=== PATIENT | male | born 1980 | race Caucasian/White ===

== ENCOUNTER → 2017-03-17 | Outpatient (CLI) | payer BC ==
[~2017-03-17] MED LIST: CITA10TA4 PO
--- NOTE | 2017-03-17 14:13 | CARD ---
APPROVED REPORT EXAM: Two-dimensional and M-mode echocardiogram with Doppler and color Doppler. Other Information Quality : Good Rhythm : NSR INDICATION Palpitations 2D DIMENSIONS RVDd3.5 (2.9-3.5cm)Left Atrium(2D)2.7 (1.6-4.0cm) IVSd1.0 (0.7-1.1cm)Aortic Root(2D)3.1 (2.0-3.7cm) LVDd4.8 (3.9-5.9cm)LVOT Diameter2.4 (1.8-2.4cm) PWd1.0 (0.7-1.1cm)LVDs3.4 (2.5-4.0cm) FS (%) 28.1 %SV57.2 ml LVEF(%)54.2 (>50%) Aortic Valve AoV Peak Brandon.106.8cm/sAoV VTI22.9cm AO Peak GR.4.6mmHgLVOT Peak Brandon.87.5cm/s LVOT VTI 19.35cmAO Mean GR.3mmHg BRIGIDA (VMAX)3.44ih0DIF (VTI)3.81cm2 Mitral Valve MV E Tgkwunhx42.9cm/sMV E Peak Gr.3mmHg MV DECEL [id number] A Imsnmdry87.6cm/s MV E Mean Gr.1mmHgE/A Ratio1.3 MV A [id number] Pulmonary Valve PV Peak Cfdvsxum442.8cm/sPV Peak Grad.6mmHg Pulmonary Vein S1 Vedozqug47.2cm/sD2 Vryjnpcc70.3cm/s LEFT VENTRICLE The left ventricle is normal size. There is normal left ventricular wall thickness. The left ventricu lar systolic function is normal and the ejection fraction is within normal range. The Ejection Fracti on is 55-60%. There is normal LV segmental wall motion. The left ventricular diastolic function and f illing is normal for age. RIGHT VENTRICLE The right ventricle is normal size. There is normal right ventricular wall thickness. The right ventr icular systolic function is normal. ATRIA The left atrium size is normal. The right atrium size is normal. The interatrial septum is intact wit h no evidence for an atrial septal defect or patent foramen ovale as noted on 2-D or Doppler imaging. AORTIC VALVE The aortic valve is normal in structure and function. The aortic valve is trileaflet. Doppler and Col or Flow revealed no significant aortic regurgitation. There is no significant aortic valvular stenosi s. MITRAL VALVE The mitral valve is normal in structure and function. There is no evidence of mitral valve prolapse. There is no mitral valve stenosis. Doppler and Color Flow revealed no mitral valve regurgitation note d. TRICUSPID VALVE Doppler and Color Flow revealed mild tricuspid regurgitation. The pulmonary artery systolic pressure is estimated at 24 mmHg. There is no pulmonary hypertension. PULMONIC VALVE The pulmonary valve is normal in structure and function. Doppler and Color Flow revealed no pulmonic valvular regurgitation. There is no pulmonic valvular stenosis. GREAT VESSELS The aortic root is normal in size. The ascending aorta is normal in size. The IVC is normal in size a nd collapses >50% with inspiration. PERICARDIAL EFFUSION There is no evidence of significant pericardial effusion. Critical Notification Critical Value: No <Conclusion> The left ventricular systolic function is normal and the ejection fraction is within normal range. Th e Ejection Fraction is 55-60%. There is normal LV segmental wall motion.
== END | disposition home or self-care (01) ==
LOC: ECHO 13:04
PROVIDERS: ATTEND Internal Medicine Cardiovascular Disease
DX: R00.2 Palpitations (principal)
CPT/HCPCS: 93306

== ENCOUNTER → 2017-12-15 | Outpatient (CLI) | payer BC, OTHER ==
--- NOTE | 2017-12-15 14:00 | RAD ---
EXAM: Lumbar spine, 3 views. HISTORY: Fall. COMPARISON: None. FINDINGS: Frontal, lateral and coned sacral views of the lumbar spine are obtained. There are 6 nonrib-bearing lumbar vertebral segments. There is degenerative endplate remodeling with disc space narrowing and facet arthropathy at L6-S1. No fracture is seen. IMPRESSION: 1. No acute osseous finding. 2. Degenerative change at the lumbosacral junction. 3. 6 nonrib-bearing lumbar vertebral segments, a normal variant. Electronically signed by: Liv Hamilton MD (12/15/2017 1:56 PM) [place] [id number]
== END | disposition home or self-care (01) ==
LOC: DXRAD 12:24
PROVIDERS: ATTEND Family Medicine
DX: M48.07 Spinal stenosis, lumbosacral region (principal); M12.88 Other specific arthropathies, not elsewhere classified, other specified site
CPT/HCPCS: 72100

== ENCOUNTER → 2018-12-17 | Outpatient (CLI) | payer BC ==
--- NOTE | 2018-12-17 16:40 | RAD ---
Bilateral hands, 6 views, 12/17/2018: HISTORY: Hand pain No recent fracture or dislocation is identified. There is only minimal spurring at scattered interphalangeal joints. No bone erosions are seen. A small calcific density in the soft tissues along the ulnar aspect of the distal right fifth metacarpal is probably due to old trauma. IMPRESSION: No acute hand abnormality is detected. Electronically signed by: Rocky Hamm MD (12/17/2018 4:37 PM) [facility]
== END | disposition home or self-care (01) ==
LOC: DXRAD 15:32
PROVIDERS: ATTEND Internal Medicine Rheumatology
DX: M77.8 Other enthesopathies, not elsewhere classified (principal)
CPT/HCPCS: 73130

== ENCOUNTER → 2018-12-17 | Outpatient (CLI) | payer BC ==
--- NOTE | 2018-12-17 16:10 | RAD ---
Chest, 2 views, 12/17/2018: HISTORY: Shortness of breath The heart size is normal. No pulmonary infiltrate is seen. There is no evidence of pleural fluid. IMPRESSION: No significant cardiopulmonary abnormality is detected. Electronically signed by: Rocky Hamm MD (12/17/2018 4:07 PM) [facility]
== END | disposition home or self-care (01) ==
LOC: DXRAD 15:25
PROVIDERS: ATTEND Physician Assistant Medical
DX: R06.02 Shortness of breath (principal)
CPT/HCPCS: 71046

== ENCOUNTER 2019-02-12 13:57 | Emergency (ER) | payer BC ==
[2019-02-12 14:20] VITALS: BP 166/89
[2019-02-12 14:34] LABS: BASO # 0.1 x10^3/uL (0.0-0.2); BASO % 1 % (0-3); EOS # 0.3 x10^3/uL (0.0-0.7); EOS % 6 % (0-3); HEMATOCRIT 50.7 % (39.0-53.0); HEMOGLOBIN 17.4 g/dL (13.0-17.5); LYMPH # 1.7 x10^3/uL (1.0-4.8); LYMPH % 30 % (24-48); MEAN CORPUSCULAR HEMOGLOBIN 30 pg (25-35); MEAN CORPUSCULAR HGB CONC 34 g/dL (31-37); MEAN CORPUSCULAR VOLUME 87 fL (79-100); MONO # 0.4 x10^3/uL (0.0-1.1); MONO % 7 % (0-9); NEUT # 3.2 x10^3uL (1.8-7.7); NEUT % 56 % (31-73); PLATELET COUNT 275 x10^3/uL (140-400); RED BLOOD COUNT 5.85 x10^6/uL (4.30-5.70); RED CELL DISTRIBUTION WIDTH 13.3 % (11.5-14.5); WHITE BLOOD COUNT 5.7 x10^3/uL (4.0-11.0)
[2019-02-12 14:46] LABS: ALBUMIN 4.5 g/dL (3.4-5.0); ALBUMIN/GLOBULIN RATIO 1.2 (1.0-1.7); CALCIUM 9.5 mg/dL (8.5-10.1); GFR 84.5; MAGNESIUM 2.3 mg/dL (1.8-2.4); POTASSIUM 4.1 mmol/L (3.5-5.1); TOTAL BILIRUBIN 0.5 mg/dL (0.2-1.0); TOTAL PROTEIN 8.4 g/dL (6.4-8.2)
--- NOTE | 2019-02-12 15:10 | PHYS DOC ---
Past History Past Medical History: Other Past Surgical History: No Surgical History Smoking: Non-smoker Alcohol Use: Occasionally Drug Use: None Adult General Chief Complaint Chief Complaint: CHEST PAIN [facility] HPI Patient is a 38-year-old male who presents with complaint of chest pain that started last night. He describes it as an ache and at times like a tingling shock. Patient indicates that he is being treated for Lyme disease. He states that he had a history of Lyme disease several years ago and had been prescribed medication but did not complete the medication. He states that currently he is taking doxycycline. He denies any nausea, vomiting or diaphoresis. He rates pain as mild to moderate. He states that nothing seems to worsen or improve the pain.[] Review of Systems Review of Systems Constitutional: Denies fever or chills [] Respiratory: Denies cough or shortness of breath [] Cardiovascular: No additional information not addressed in HPI [] GI: Denies abdominal pain, nausea, vomiting or diarrhea [] Integument: Denies rash or skin lesions [] Neurologic: Denies headache, focal weakness or sensory changes [] All other systems were reviewed and found to be within normal limits, except as documented in this note. Allergies Allergies Allergies Coded Allergies Type Severity Reaction Last Updated Verified No Known Drug Allergies 02/09/14 No Physical Exam Physical Exam Constitutional: Well developed, well nourished, no acute distress, non-toxic appearance. [] HENT: Normocephalic, atraumatic, bilateral external ears normal, oropharynx moist, no oral exudates, nose normal. [] Eyes: PERRLA, EOMI, conjunctiva normal, no discharge. [] Neck: Normal range of motion, no tenderness, supple, no stridor. [] Cardiovascular:Heart rate regular rhythm, no murmur [] Lungs & Thorax: Bilateral breath sounds clear to auscultation [] Abdomen: Bowel sounds normal, soft, no tenderness, no masses, no pulsatile masses. [] Skin: Warm, dry, no erythema, no rash. [] Back: No tenderness, no CVA tenderness. [] Extremities: No tenderness, no cyanosis, no clubbing, ROM intact, no edema. [] Neurologic: Alert and oriented X 3, normal motor function, normal sensory function, no focal deficits noted. [] Psychologic: Affect normal, judgement normal, mood normal. [] Current Patient Data Vital Signs Vital Signs Date Time Temp Pulse Resp B/P (MAP) Pulse Ox O2 Delivery O2 Flow Rate FiO2 02/12/19 14:20 84 18 98 Room Air Lab Results Laboratory Tests Test 02/12/19 14:00 White Blood Count 5.7 x10^3/uL (4.0-11.0) Red Blood Count 5.85 x10^6/uL (4.30-5.70) H Hemoglobin 17.4 g/dL (13.0-17.5) Hematocrit 50.7 % (39.0-53.0) Mean Corpuscular Volume 87 fL (79-100) Mean Corpuscular Hemoglobin 30 pg (25-35) Mean Corpuscular Hemoglobin Concent 34 g/dL (31-37) Red Cell Distribution Width 13.3 % (11.5-14.5) Platelet Count 275 x10^3/uL (140-400) Neutrophils (%) (Auto) 56 % (31-73) Lymphocytes (%) (Auto) 30 % (24-48) Monocytes (%) (Auto) 7 % (0-9) Eosinophils (%) (Auto) 6 % (0-3) H Basophils (%) (Auto) 1 % (0-3) Neutrophils # (Auto) 3.2 x10^3uL (1.8-7.7) Lymphocytes # (Auto) 1.7 x10^3/uL (1.0-4.8) Monocytes # (Auto) 0.4 x10^3/uL (0.0-1.1) Eosinophils # (Auto) 0.3 x10^3/uL (0.0-0.7) Basophils # (Auto) 0.1 x10^3/uL (0.0-0.2) D-Dimer (Kelley) < 0.19 mg/L (0.00-0.50) Sodium Level 138 mmol/L (136-145) Potassium Level 4.1 mmol/L (3.5-5.1) Chloride Level 103 mmol/L (98-107) Carbon Dioxide Level 25 mmol/L (21-32) Anion Gap 10 (6-14) Blood Urea Nitrogen 15 mg/dL (8-26) Creatinine 1.0 mg/dL (0.7-1.3) Estimated GFR (Cockcroft-Gault) 84.5 BUN/Creatinine Ratio 15 (6-20) Glucose Level 88 mg/dL (70-99) Calcium Level 9.5 mg/dL (8.5-10.1) Magnesium Level 2.3 mg/dL (1.8-2.4) Total Bilirubin 0.5 mg/dL (0.2-1.0) Aspartate Amino Transferase (AST) 19 U/L (15-37) Alanine Aminotransferase (ALT) 61 U/L (16-63) Alkaline Phosphatase 90 U/L (46-116) Troponin I Quantitative < 0.017 ng/mL (0-0.055) HN-Ihk-K-Type Natriuretic Peptide 6 pg/mL (0-124) Total Protein 8.4 g/dL (6.4-8.2) H Albumin 4.5 g/dL (3.4-5.0) Albumin/Globulin Ratio 1.2 (1.0-1.7) EKG EKG EKG demonstrates sinus tachycardia with a rate of 102.[] Radiology/Procedures Radiology/Procedures [] Impressions: PROCEDURE: PORTABLE CHEST 1V PORTABLE CHEST 1V Clinical Indication: Chest pain, history of asthma. Comparison: Two-view chest December 17, 2018. Findings: The cardiomediastinal silhouette is normal. Lungs are clear. There is no pneumothorax. No pleural effusion is appreciated. No acute bone abnormality. IMPRESSION: No acute cardiopulmonary process. Electronically signed by: Montrell Durbin MD (02/12/2019 3:18 PM) [facility] [place] Course & Med Decision Making Course & Med Decision Making Pertinent Labs and Imaging studies reviewed. (See chart for details) [] Dragon Disclaimer Dragon Disclaimer This electronic medical record was generated, in whole or in part, using a voice recognition dictation system. Departure Departure: Impression: Primary Impression: Atypical chest pain Disposition: 01 HOME, SELF-CARE Condition: STABLE Referrals: ROXANE LI (PCP) Patient Instructions: Chest Pain (Nonspecific) CHRISTI HOU Jr. DO Feb 12, 2019 15:10
--- NOTE | 2019-02-12 15:21 | RAD ---
PORTABLE CHEST 1V Clinical Indication: Chest pain, history of asthma. Comparison: Two-view chest December 17, 2018. Findings: The cardiomediastinal silhouette is normal. Lungs are clear. There is no pneumothorax. No pleural effusion is appreciated. No acute bone abnormality. IMPRESSION: No acute cardiopulmonary process. Electronically signed by: Montrell Durbin MD (02/12/2019 3:18 PM) [facility]
--- NOTE | 2019-02-12 15:57 | EKG ---
[address] [address] Test Date: 2019-02-12 Test Time: 14:06:22 Pat Name: ИРИНА OLIVAS Department: Room: Gender: M [employer]: CARISSA : 1980 Requested By: CHRISTI HOU Order Number: [id number] Reading MD: Measurements Intervals [place] Rate: 102 P: 29 LA: 146 QRS: 71 QRSD: 80 T: 15 QT: 342 QTc: 450 Interpretive Statements SINUS TACHYCARDIA OTHERWISE NORMAL ECG RI6.01 No previous ECG available for comparison
== END 2019-02-12 17:00 | disposition home or self-care (01) ==
LOC: ER 13:57
DX: R07.89 Other chest pain (principal); J45.909 Unspecified asthma, uncomplicated
CPT/HCPCS: 36415; 71045; 80053; 83735; 83880; 84443; 84484; 85025; 85379; 93005; 99285

== ENCOUNTER → 2019-08-01 | Outpatient (CLI) | payer BC ==
[~2019-08-01] MED LIST changes: +ALPR1TAB PO; +IOHEXOL 240 MG/ML 50ML VIAL. ONE; +IOHEXOL 240 MG/ML 50ML VIAL. PO ONE; +IOHEXOL 300 MG/ML 75 ML VIAL. IV ONE
--- NOTE | 2019-08-01 14:07 | RAD ---
CT ABD PELV W/ORAL IV CONTRAST Indication: Left lower quadrant abdominal pain, constipation Technique: Postcontrast CT imaging was performed of the abdomen and pelvis, multiplanar reconstruction images submitted. Oral contrast was also given. One or more of the following individualized dose reduction techniques were utilized for this examination: 1. Automated exposure control 2. Adjustment of the mA and/or kV according to patient size 3. Use of iterative reconstruction technique. Comparison: None Findings: There is no abnormality of the limited visualized lung bases. No focal abnormality is identified of the liver, spleen, or pancreas. Gallbladder is present without obvious intraluminal abnormality by CT. Both kidneys enhance, no hydronephrosis. There is no adrenal nodularity. Bowel is not dilated. There is mild to moderate hazy and strandy change about the proximal sigmoid colon at which there are some small diverticula present, no abscess or free air. Normal caliber appendix is visualized without adjacent inflammatory-type change. There is some facet degenerative change of the lumbar spine. IMPRESSION: 1. There is some inflammatory change change about the proximal sigmoid colon at which there are some diverticula present, evidence of diverticulitis. No abscess or free air is identified. Electronically signed by: Axel Horton MD (08/01/2019 2:04 PM) [facility]
== END | disposition home or self-care (01) ==
LOC: PMG 12:11
PROVIDERS: ATTEND Family Medicine
DX: K57.30 Diverticulosis of large intestine without perforation or abscess without bleeding (principal); K57.32 Diverticulitis of large intestine without perforation or abscess without bleeding
CPT/HCPCS: 74177; Q9966; Q9967

== ENCOUNTER 2019-08-08 10:06 | Inpatient (IN) | payer BC ==
[~2019-08-08] VITALS: Ht 170.2 cm; Wt 88.7 kg
[~2019-08-08 10:06] MED LIST changes: -ALPR1TAB PO; -IOHEXOL 240 MG/ML 50ML VIAL. ONE; -IOHEXOL 240 MG/ML 50ML VIAL. PO ONE; -IOHEXOL 300 MG/ML 75 ML VIAL. IV ONE
[2019-08-08] MEDS ORDERED: IV NORMAL SALINE 1,000ML 1,000 ML IV ONE (10:30)
[2019-08-08] MEDS ORDERED: IOHEXOL 300 MG/ML 75 ML VIAL. IV ONE (10:45)
[2019-08-08 10:46] LABS: BASO # 0.1 x10^3/uL (0.0-0.2); BASO % 1 % (0-3); EOS # 0.3 x10^3/uL (0.0-0.7); EOS % 6 % (0-3); HEMATOCRIT 49.3 % (39.0-53.0); HEMOGLOBIN 16.4 g/dL (13.0-17.5); LYMPH # 1.3 x10^3/uL (1.0-4.8); LYMPH % 24 % (24-48); MEAN CORPUSCULAR HEMOGLOBIN 29 pg (25-35); MEAN CORPUSCULAR HGB CONC 33 g/dL (31-37); MEAN CORPUSCULAR VOLUME 88 fL (79-100); MONO # 0.5 x10^3/uL (0.0-1.1); MONO % 9 % (0-9); NEUT # 3.4 x10^3uL (1.8-7.7); NEUT % 61 % (31-73); PLATELET COUNT 259 x10^3/uL (140-400); RED BLOOD COUNT 5.61 x10^6/uL (4.30-5.70); RED CELL DISTRIBUTION WIDTH 12.8 % (11.5-14.5); WHITE BLOOD COUNT 5.6 x10^3/uL (4.0-11.0)
[2019-08-08 10:53] LABS: CALCIUM 8.8 mg/dL (8.5-10.1); CREATININE 1.1 mg/dL (0.7-1.3); GFR 75.3; POTASSIUM 4.4 mmol/L (3.5-5.1)
[2019-08-08 10:59] LABS: ALBUMIN 4.1 g/dL (3.4-5.0); ALBUMIN/GLOBULIN RATIO 1.2 (1.0-1.7); TOTAL BILIRUBIN 0.2 mg/dL (0.2-1.0); TOTAL PROTEIN 7.4 g/dL (6.4-8.2)
[2019-08-08] MEDS ORDERED: ONDANSETRON PF 4 MG/2 ML VIAL. IVP ONE (11:00)
[2019-08-08] MEDS ORDERED: MORPHINE SULFATE 2 MG/ML DISP.SYRIN. IV ONE (11:00)
[2019-08-08 11:03] LABS: BACTERIA,URINE 0 /HPF (0-FEW); BILIRUBIN,URINE NEG (NEG); CLARITY,URINE CLEAR; COLOR,URINE YELLOW; GLUCOSE,URINE NEG (NEG); NITRITE,URINE NEG (NEG); RBC,URINE OCC /HPF (0-2); SQUAMOUS EPITHELIAL CELL,UR OCC /LPF; UROBILINOGEN,URINE 0.2 mg/dL (0.2 mg/dL); WBC,URINE RARE /HPF (0-4)
--- NOTE | 2019-08-08 11:03 | PHYS DOC ---
Past History Past Medical History: Anxiety, Other Past Surgical History: No Surgical History Additional Past Surgical Histo: LEFT SHOULDER Smoking: Non-smoker Alcohol Use: Rarely Drug Use: None Adult General Chief Complaint Chief Complaint: ABDOMINAL PAIN HPI HPI 39-year-old male presents with dizziness and continued left lower quadrant abdominal pain. The patient was diagnosed in this facility with diverticulitis 7 days ago and placed on Cipro and Flagyl. Patient had some dizziness yesterday which she described as a rotation type feeling. He was advised to stop taking his Flagyl. The patient had another episode of dizziness today where he thought he was actually pass out. He went down to 1 knee, so he would not fall over. He did not passout. He is having throbbing left lower quadrant pain that is moderate in intensity. It was going away, but came back today. He is concerned maybe the antibiotic so not worked. He is also very concerned about this dizziness. He denies fever or chills. He has had frequent urination, but drinks a lot of water. Denies dysuria. Review of Systems Review of Systems Constitutional: Denies fever or chills [] Eyes: Denies change in visual acuity, redness, or eye pain [] HENT: Denies nasal congestion or sore throat [] Respiratory: Denies cough or shortness of breath [] Cardiovascular: No additional information not addressed in HPI [] GI: LLQ abdominal pain. Denies nausea, vomiting, bloody stools or diarrhea [] : Increased urinary frequency [] Musculoskeletal: Denies back pain or joint pain [] Integument: Denies rash or skin lesions [] Neurologic: Denies headache, focal weakness or sensory changes [] Endocrine: Polyuria [] All other systems were reviewed and found to be within normal limits, except as documented in this note. Current Medications Current Medications Current Medications Medications (Trade) Dose Ordered Sig/Lenard Start Time Stop Time Status Last Admin Dose Admin Iohexol (Omnipaque 300 Mg/ml) 75 ml 1X ONCE 08/08/19 10:45 08/08/19 10:46 UNV Morphine Sulfate (Morphine 2mg Syringe) 2 mg 1X ONCE 08/08/19 11:00 08/08/19 11:01 08/08/19 10:41 2 MG Ondansetron HCl (Zofran) 4 mg 1X ONCE 08/08/19 11:00 08/08/19 11:01 08/08/19 10:39 4 MG Sodium Chloride 1,000 ml @ 1,000 mls/hr 1X ONCE 08/08/19 10:30 08/08/19 11:29 08/08/19 10:38 1,000 MLS/HR Allergies Allergies Allergies Coded Allergies Type Severity Reaction Last Updated Verified No Known Drug Allergies 02/09/14 No Physical Exam Physical Exam Constitutional: Well developed, well nourished, no acute distress, non-toxic appearance. [] HENT: Normocephalic, atraumatic, bilateral external ears normal, oropharynx moist, no oral exudates, nose normal. [] Eyes: PERRLA, EOMI, conjunctiva normal, no discharge. [] Neck: Normal range of motion, no tenderness, supple, no stridor. [] Cardiovascular: Heart rate regular rhythm, no murmur [] Lungs & Thorax: Bilateral breath sounds clear to auscultation [] Abdomen: Bowel sounds normal, soft, mild LLQ tenderness, no masses, no pulsatile masses. [] Skin: Warm, dry, no erythema, no rash. [] Back: No tenderness, no CVA tenderness. [] Extremities: No tenderness, no cyanosis, no clubbing, ROM intact, no edema. [] Neurologic: Alert and oriented X 3, normal motor function, normal sensory function, no focal deficits noted. [] Psychologic: Affect normal, judgement normal, mood normal. [] Current Patient Data Vital Signs Vital Signs Date Time Temp Pulse Resp B/P (MAP) Pulse Ox O2 Delivery O2 Flow Rate FiO2 08/08/19 10:44 66 20 154/87 (109) 99 Room Air 08/08/19 10:15 97.4 Lab Results Laboratory Tests Test 08/08/19 10:33 White Blood Count 5.6 x10^3/uL (4.0-11.0) Red Blood Count 5.61 x10^6/uL (4.30-5.70) Hemoglobin 16.4 g/dL (13.0-17.5) Hematocrit 49.3 % (39.0-53.0) Mean Corpuscular Volume 88 fL (79-100) Mean Corpuscular Hemoglobin 29 pg (25-35) Mean Corpuscular Hemoglobin Concent 33 g/dL (31-37) Red Cell Distribution Width 12.8 % (11.5-14.5) Platelet Count 259 x10^3/uL (140-400) Neutrophils (%) (Auto) 61 % (31-73) Lymphocytes (%) (Auto) 24 % (24-48) Monocytes (%) (Auto) 9 % (0-9) Eosinophils (%) (Auto) 6 % (0-3) H Basophils (%) (Auto) 1 % (0-3) Neutrophils # (Auto) 3.4 x10^3uL (1.8-7.7) Lymphocytes # (Auto) 1.3 x10^3/uL (1.0-4.8) Monocytes # (Auto) 0.5 x10^3/uL (0.0-1.1) Eosinophils # (Auto) 0.3 x10^3/uL (0.0-0.7) Basophils # (Auto) 0.1 x10^3/uL (0.0-0.2) Sodium Level 142 mmol/L (136-145) Potassium Level 4.4 mmol/L (3.5-5.1) Chloride Level 105 mmol/L (98-107) Carbon Dioxide Level 27 mmol/L (21-32) Anion Gap 10 (6-14) Blood Urea Nitrogen 11 mg/dL (8-26) Creatinine 1.1 mg/dL (0.7-1.3) Estimated GFR (Cockcroft-Gault) 75.3 BUN/Creatinine Ratio 10 (6-20) Glucose Level 96 mg/dL (70-99) Calcium Level 8.8 mg/dL (8.5-10.1) Total Bilirubin Pending Aspartate Amino Transferase (AST) Pending Alanine Aminotransferase (ALT) Pending Alkaline Phosphatase Pending Total Protein Pending Albumin Pending Albumin/Globulin Ratio Pending EKG EKG [] Radiology/Procedures Radiology/Procedures [] Impressions: CT ABD PELV W/ IV CONTRST ONLY Indication: Diverticulitis one week ago. Exposure: One or more of the following individualized dose reduction techniques were utilized for this examination: 1. Automated exposure control 2. Adjustment of the mA and/or kV according to patient size 3. Use of iterative reconstruction technique. Technique: Intravenous contrast was given. No oral contrast per request. Comparison: 08/01/2019. FINDINGS: Lung bases are clear. Liver and spleen appear unremarkable. Pancreas appears unremarkable. No evidence of adrenal mass. Kidneys demonstrate symmetric enhancement. No evidence of hydronephrosis or renal mass. Gallbladder demonstrates no calcified stone or distention. Aorta is nonaneurysmal. No evidence of pathologic lymph node enlargement. Small hiatal hernia. No significant small bowel distention. The previously seen stranding in the fat along the distal descending and proximal sigmoid colon is again seen but appear slightly improved. No definite colonic wall thickening. The appendix appears normal. No significant ascites. No evidence of pneumoperitoneum. The urinary bladder appears unremarkable. Vertebral body height is intact. Mild degenerative changes are seen at the spine. No evidence of aggressive bone destruction. IMPRESSION: 1. Mild fatty stranding adjacent to the distal descending and proximal sigmoid colon is again identified but is slightly improved, compatible with mild improving diverticulitis or colitis. 2. No new abnormalities are seen. Electronically signed by: Andi Berry MD (08/08/2019 11:53 AM) [id number] DICTATED AND SIGNED BY: ANDI BERRY MD DATE: 08/08/19 1157 CC: IGLESIA PEREZ DO; MICHAEL ROCA MD ~ Course & Med Decision Making Course & Med Decision Making Pertinent Labs and Imaging studies reviewed. (See chart for details) The patient was given 2 mg of morphine. His pain is significant improved. He is still having some dizziness. His CT scan shows somewhat improving diverticulitis, but still evidence of diverticulitis. Technically, the patient appears to be failing outpatient therapy. I discussed it with him. Would be best to admit the patient and he is willing to be admitted. I will start him on Zosyn. I talked with Dr. Perez about the patient and he has agreed to admit him for further treatment. [] Dragon Disclaimer Dragon Disclaimer This electronic medical record was generated, in whole or in part, using a voice recognition dictation system. Departure Departure: Impression: Primary Impression: Diverticulitis Additional Impression: Dizziness Disposition: ADMITTED INPATIENT Admitting Physician: Marianna Perez Condition: STABLE Referrals: MICHAEL ROCA MD (PCP) Problem Qualifiers IGLESIA PEREZ DO Aug 08, 2019 11:03
[2019-08-08] MEDS ORDERED: CONTRAST GIVEN MC PRN (11:15)
--- NOTE | 2019-08-08 11:56 | RAD ---
CT ABD PELV W/ IV CONTRST ONLY Indication: Diverticulitis one week ago. Exposure: One or more of the following individualized dose reduction techniques were utilized for this examination: 1. Automated exposure control 2. Adjustment of the mA and/or kV according to patient size 3. Use of iterative reconstruction technique. Technique: Intravenous contrast was given. No oral contrast per request. Comparison: 08/01/2019. FINDINGS: Lung bases are clear. Liver and spleen appear unremarkable. Pancreas appears unremarkable. No evidence of adrenal mass. Kidneys demonstrate symmetric enhancement. No evidence of hydronephrosis or renal mass. Gallbladder demonstrates no calcified stone or distention. Aorta is nonaneurysmal. No evidence of pathologic lymph node enlargement. Small hiatal hernia. No significant small bowel distention. The previously seen stranding in the fat along the distal descending and proximal sigmoid colon is again seen but appear slightly improved. No definite colonic wall thickening. The appendix appears normal. No significant ascites. No evidence of pneumoperitoneum. The urinary bladder appears unremarkable. Vertebral body height is intact. Mild degenerative changes are seen at the spine. No evidence of aggressive bone destruction. IMPRESSION: 1. Mild fatty stranding adjacent to the distal descending and proximal sigmoid colon is again identified but is slightly improved, compatible with mild improving diverticulitis or colitis. 2. No new abnormalities are seen. Electronically signed by: Andi Berry MD (08/08/2019 11:53 AM) [id number]
[2019-08-08] MEDS ORDERED: MECLIZINE 12.5 MG TABLET. PO STA (12:09)
[2019-08-08] MEDS ORDERED: IV NORMAL SALINE 50ML 50 ML ONE (12:35)
[2019-08-08] MEDS ORDERED: PIPERACILLIN/TAZOBACTAM 3.375 GM VIAL IV ONE (12:35)
[2019-08-08] MEDS ORDERED: MORPHINE SULFATE 2 MG/ML DISP.SYRIN. IV PRN (13:00)
[2019-08-08] MEDS ORDERED: PIPERACILLIN/TAZOBACTAM 3.375 GM in IV NORMAL SALINE 50ML 50 ML IV ONE (13:00)
[2019-08-08] MEDS ORDERED: ONDANSETRON PF 4 MG/2 ML VIAL. IV PRN (13:00)
[2019-08-08] MEDS ORDERED: ONDANSETRON PF 4 MG/2 ML VIAL. IVP PRN (14:00)
[2019-08-08 14:12] VITALS: BP 115/78
[2019-08-08] MEDS ORDERED: ALPR1TAB PO (15:06)
[2019-08-08] MEDS: IV NORMAL SALINE 1,000ML 1,000 ML IV SCH (15:39)
[2019-08-08] MEDS ORDERED: ALPRAZolam 0.25 MG TABLET PO SCH (17:00)
[2019-08-08] MEDS: PIPERACILLIN/TAZOBACTAM 3.375 GM in IV NORMAL SALINE 50ML 50 ML IV SCH (18:22)
[2019-08-08 19:53] VITALS: BP 128/73
[2019-08-08 22:07] VITALS: BP 127/81
[2019-08-09] VITALS (7 sets, daily range): BP systolic 119–135; BP diastolic 79–88
[2019-08-09] MEDS: PIPERACILLIN/TAZOBACTAM 3.375 GM in IV NORMAL SALINE 50ML 50 ML IV SCH ×4 (01:07→18:05)
[2019-08-09] MEDS: IV NORMAL SALINE 1,000ML 1,000 ML IV SCH ×3 (05:55→19:30)
[2019-08-09] MEDS: ALPRAZolam 0.25 MG TABLET PO SCH ×4 (07:43→21:29)
[2019-08-09] MEDS ORDERED: FLU VAX QS 2019-20 (36MOS+)/PF 0.5 ML SYRINGE. VAX IM ONE (09:00)
[2019-08-09] MEDS: CALCIUM CARBONATE 500 MG TAB.CHEW PO PRN (14:20)
--- NOTE | 2019-08-09 16:08 | HP ---
ADMIT DATE: 08/08/2019 HISTORY OF PRESENT ILLNESS: The patient is a 39-year-old male patient who presented to the Emergency Room of [facility] with abdominal pain. He also complained of dizziness and continued left lower quadrant abdominal pain. The patient was diagnosed with diverticulitis about 7 days ago and placed on Cipro and Flagyl, had had some dizziness described as a rotation type feeling, was advised to stop his Flagyl. The patient had another episode of dizziness today. Yesterday he thought he was actually almost passed out, he went down to one knee, so he would not fall over. He did not pass out. He is having throbbing left lower quadrant pain that is moderate in intensity. It was going away, but came back here today. He is concerned may be the antibiotic are not working. He has also very concerned about his dizziness. He denies any fever or chills. He has had frequent urination, but drinks lots of water. Denies any dysuria. On arrival to the Emergency Room, his white cell count was normal. His chemistry was unremarkable in particular his blood sugar was normal at 96. He has had a repeat CT scan of the abdomen and pelvis, which showed that the patient has mild fatty stranding adjacent to the distal descending and proximal sigmoid colon again was identified, but slightly improved compatible with mild improving diverticulitis or colitis. No new abnormalities are seen. He was admitted, started on IV Zosyn together with IV fluid. PAST MEDICAL HISTORY: Significant for hypothyroidism, hypogonadism, gastroesophageal reflux disease. PAST SURGICAL HISTORY: Significant for left rotator cuff repair and colonoscopy. ALLERGIES: He has no known drug allergies. MEDICATIONS: He is currently on following medications: He is on alprazolam 1 mg daily. He is also on testosterone patches and he was also on omeprazole. FAMILY HISTORY: He has two sisters and 4 brothers. One of his brothers is older and everybody is younger, one of his sisters has gastroesophageal reflux disease. Both parents are alive. His father is alive at age of 55 and generally healthy. Mother is alive at age of 56 and healthy. SOCIAL HISTORY: He lives with his common-law and they have one daughter between the 2 of them. He does not smoke, drink alcohol or use recreational drugs. 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 PHYSICAL EXAMINATION: GENERAL: On examining him on arrival, he looked well and was clearly in no apparent respiratory distress. No pallor, jaundice, cyanosis or thyromegaly. No jugular venous distention. No limb edema. VITAL SIGNS: His heart rate was 73, blood pressure was 133/80, temperature was 97.4, respiratory rate 20, and oxygen saturation was 97%. HEAD, EYES, EARS, NOSE AND THROAT: Normocephalic, atraumatic. NECK: Supple. HEART: Showed normal first and second heart sounds. No gallop or murmur. CHEST: Clear to auscultation. No crepitation or rhonchi. ABDOMEN: Distended, soft, nontender. No guarding or rigidity. No organomegaly. All hernial orifices intact. Bowel sounds normal. NEUROLOGIC: He was awake, alert, responding appropriately. All cranial nerves intact. EXTREMITIES: He moves extremities without difficulty, ambulates without assistance or assistive devices. LABORATORY DATA: His lab work showed a white cell count 5600, hemoglobin 16.4, hematocrit 49, MCV 88 and platelet count 259,000. His chemistry showed a serum sodium 142, potassium 4.4, chloride 105, bicarbonate 27, anion gap of 10, BUN 11, creatinine was 1.1, estimated GFR was 75 mL per minute. His glucose was 96, calcium was 8.8. Total bilirubin, AST, ALT, alkaline phosphatase were normal. Total protein was 7.4, albumin was 4.1. Urinalysis was essentially unremarkable. ASSESSMENT AND PLAN: This is a 39-year-old male patient who came in with continued abdominal pain. CT scan showed that he has diverticulitis, which is actually improving; however, the patient has multiple side effects of both his Flagyl and ciprofloxacin and therefore, he was admitted. He was started on Zosyn. We will monitor his lab work. We will check his orthostatics. Given that he has hypogonadism and low testosterone as well as hypothyroidism, I will arrange for him to be evaluated by an front office medical assistant as he might have hypopituitarism. DELPHINE CORREA MD DR: SILAS/sherrill JOB#: [id number] / [id number]
[2019-08-09] MEDS: LACTOBACILLUS RHAMNOSUS GG 1 CAPSULE. PO SCH (21:29)
--- NOTE | 2019-08-09 23:57 | PN ---
DATE: 08/09/2019 SUBJECTIVE: The patient is resting, slightly propped up in bed, in no apparent distress, awake, alert, continued to have abdominal pain in the left lower quadrant, continuing to feel dizzy and lightheaded. Denied any loss of consciousness. PHYSICAL EXAMINATION: GENERAL: When I examined him, he looked well and was clearly in no apparent respiratory distress. No pallor, jaundice, cyanosis or thyromegaly. No jugular venous distention. No limb edema. VITAL SIGNS: His heart rate was 62, blood pressure 123/80, temperature was 97.7, respiratory rate 20, and oxygen saturation was 97%. ASSESSMENT: Acute diverticulitis. He has also hypogonadism and hypothyroidism. PLAN: My plan is to continue with IV Zosyn for now. I will switch him tomorrow to oral antibiotic and he can be discharged. We will arrange for him to be evaluated by an dock supervisor for his hypogonadism as well as hypothyroidism. DELPHINE CORREA MD DR: SILAS/sherrill JOB#: [id number] / [id number]
[2019-08-10] MEDS: CALCIUM CARBONATE 500 MG TAB.CHEW PO PRN (00:17)
[2019-08-10] MEDS: PIPERACILLIN/TAZOBACTAM 3.375 GM in IV NORMAL SALINE 50ML 50 ML IV SCH ×3 (00:17→11:58)
[2019-08-10] MEDS: IV NORMAL SALINE 1,000ML 1,000 ML IV SCH (05:03)
[2019-08-10] MEDS: ALPRAZolam 0.25 MG TABLET PO SCH ×2 (05:43→11:58)
[2019-08-10 06:02] VITALS: BP 115/75
[2019-08-10 07:12] LABS: HEMATOCRIT 45.5 % (39.0-53.0); HEMOGLOBIN 15.5 g/dL (13.0-17.5); RED BLOOD COUNT 5.18 x10^6/uL (4.30-5.70); RED CELL DISTRIBUTION WIDTH 13.1 % (11.5-14.5); WHITE BLOOD COUNT 5.7 x10^3/uL (4.0-11.0)
[2019-08-10 07:30] LABS: ALBUMIN 3.4 g/dL (3.4-5.0); ALBUMIN/GLOBULIN RATIO 1.1 (1.0-1.7); CALCIUM 8.1 mg/dL (8.5-10.1); GFR 84.1; TOTAL BILIRUBIN 0.2 mg/dL (0.2-1.0); TOTAL PROTEIN 6.4 g/dL (6.4-8.2)
[2019-08-10] MEDS: LACTOBACILLUS RHAMNOSUS GG 1 CAPSULE. PO SCH (08:44)
[2019-08-10 11:01] VITALS: BP 125/78
[2019-08-10] MEDS ORDERED: AMOX1TAB61 PO (14:16)
[2019-08-10] MEDS ORDERED: ESOM40CA PO (14:16)
== END 2019-08-10 14:48 | disposition home or self-care (01) | DRG 392 ==
LOC: ER 10:15 → 1 SOUTH 13:00
PROVIDERS: ADMIT Internal Medicine; ATTEND Internal Medicine
DX: K57.92 Diverticulitis of intestine, part unspecified, without perforation or abscess without bleeding (principal); R42 Dizziness and giddiness; T37.3X5A Adverse effect of other antiprotozoal drugs, initial encounter; E03.9 Hypothyroidism, unspecified; E29.1 Testicular hypofunction; F41.9 Anxiety disorder, unspecified; K21.9 Gastro-esophageal reflux disease without esophagitis; Z79.899 Other long term (current) drug therapy
CPT/HCPCS: 36415; 74177; 80053; 81001; 85025; 85027; 90471; 90686; 96361; 96365; 96375; J2270; J2405; J2543; J8597; Q9967; 99285-25; J7030

== ENCOUNTER 2020-07-13 17:30 | Emergency (ER) | payer BC ==
[~2020-07-13] VITALS: Ht 170.2 cm; Wt 88.7 kg
[~2020-07-13 17:30] MED LIST changes: +ALPR1TAB PO; +AMOX1TAB61 PO; +ESOM40CA PO
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
[2020-07-13] MEDS ORDERED: LIDO:MAALOX 1:1 20 ML SINGLE DOSE. PO ONE (18:30)
[2020-07-13 18:50] LABS: HEMATOCRIT 48.9 % (39.0-53.0); HEMOGLOBIN 16.9 g/dL (13.0-17.5); RED BLOOD COUNT 5.67 x10^6/uL (4.30-5.70); RED CELL DISTRIBUTION WIDTH 13.1 % (11.5-14.5); WHITE BLOOD COUNT 6.8 x10^3/uL (4.0-11.0)
[2020-07-13 19:02] LABS: CALCIUM 9.2 mg/dL (8.5-10.1); CREATININE 1.1 mg/dL (0.7-1.3); GFR 74.9; POTASSIUM 4.2 mmol/L (3.5-5.1)
[2020-07-13 19:09] LABS: ALBUMIN 4.3 g/dL (3.4-5.0); ALBUMIN/GLOBULIN RATIO 1.3 (1.0-1.7); TOTAL BILIRUBIN 0.5 mg/dL (0.2-1.0); TOTAL PROTEIN 7.7 g/dL (6.4-8.2)
--- NOTE | 2020-07-13 19:15 | EKG ---
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
[2020-07-13 19:58] VITALS: BP 137/93
--- NOTE | 2020-07-13 20:40 | RAD ---
EXAMINATION: XR CHEST 2V CLINICAL HISTORY: Chest pain EXAM DATE/TIME: 07/13/2020 7:10 PM COMPARISON: 02/12/2019 FINDINGS: Lines, Tubes, and Devices: None. Cardiomediastinal Silhouette: Within normal limits. Lungs and Pleura: No evidence of focal airspace consolidation or pleural effusion. Old calcified andrés hilar granulomas. Pulmonary vasculature unremarkable. Bones and Soft Tissues: No acute osseous abnormality. IMPRESSION: No evidence of acute cardiopulmonary abnormality or significant interval change. Electronically signed by: Rick Flowers DO (07/13/2020 8:37 PM) [facility]
== END 2020-07-13 20:19 | disposition home or self-care (01) ==
LOC: ER 17:30
DX: R00.2 Palpitations (principal); R12 Heartburn; F41.9 Anxiety disorder, unspecified; A69.20 Lyme disease, unspecified; Z98.890 Other specified postprocedural states
CPT/HCPCS: 36415; 71046; 80053; 84443; 84484; 85027; 93005; 99285

== ENCOUNTER → 2020-07-17 | Outpatient (CLI) | payer BC ==
[2020-07-13 19:58] VITALS: BP 137/93
--- NOTE | 2020-07-18 03:00 | RAD ---
EXAM: AP, lateral and lumbosacral spot views of the lumbar spine DATE: 07/17/2020 2:50 PM INDICATION: Reason: BACK PAIN / Spl. Instructions: / History: COMPARISON: No Prior FINDINGS: For the purposes of this report there are 6 nonrib-bearing lumbar-type vertebral bodies. Vertebral body heights are preserved. Disc heights are grossly preserved. No spondylolisthesis. Mild/ moderate facet degenerative changes at L4-5 and below. No spondylolisthesis. IMPRESSION: 1. Multilevel spondylosis as above 2. Negative acute fracture or subluxation. Electronically signed by: Carlito Hernandez MD (07/18/2020 2:58 AM) [facility]
== END ==
LOC: DXRAD 14:39
PROVIDERS: ATTEND Family Medicine
DX: M47.816 Spondylosis without myelopathy or radiculopathy, lumbar region (principal)
CPT/HCPCS: 72100

== ENCOUNTER → 2020-08-31 | Outpatient (CLI) | payer OTHER, BC ==
--- NOTE | 2020-09-01 04:58 | RAD ---
Study: XR LT WRIST 3VIEWS Indication: Wrist injury. Comparison: Hand radiographs 12/17/2018 Findings: No acute fracture. Alignment is within normal limits with a normal scapholunate interval. Neutral uln ar variance. Chronic focus of ossification adjacent to the base of the fifth metacarpal also seen on the 2019 comparison. No retained radiopaque foreign body. Impression: No acute osseous abnormality or significant arthrosis. Electronically signed by: AN HUBBARD MD (09/01/2020 4:56 AM) [facility]
== END ==
LOC: RAD 17:37
PROVIDERS: ATTEND Family Medicine
DX: S69.92XA Unspecified injury of left wrist, hand and finger(s), initial encounter (principal); X58.XXXA Exposure to other specified factors, initial encounter; Y93.89 Activity, other specified; Y92.89 Other specified places as the place of occurrence of the external cause; Y99.8 Other external cause status
CPT/HCPCS: 73110

== ENCOUNTER 2020-11-25 14:58 | Emergency (ER) | payer BC, OTHER ==
[~2020-11-25] VITALS: Ht 170.2 cm; Wt 89.4 kg
[2020-11-25] MEDS ORDERED: ASPIRIN CHEWABLE 81 MG TABLET. ONE (15:28)
[2020-11-25] MEDS ORDERED: ASPIRIN CHEWABLE 81 MG TABLET. PO ONE (15:30)
[2020-11-25 15:43] LABS: BASO # 0.1 x10^3/uL (0.0-0.2); BASO % 1 % (0-3); EOS # 0.5 x10^3/uL (0.0-0.7); EOS % 9 % (0-3); HEMATOCRIT 47.7 % (39.0-53.0); HEMOGLOBIN 16.3 g/dL (13.0-17.5); LYMPH # 1.6 x10^3/uL (1.0-4.8); LYMPH % 31 % (24-48); MEAN CORPUSCULAR HEMOGLOBIN 30 pg (25-35); MEAN CORPUSCULAR HGB CONC 34 g/dL (31-37); MEAN CORPUSCULAR VOLUME 89 fL (79-100); MONO # 0.4 x10^3/uL (0.0-1.1); MONO % 8 % (0-9); NEUT # 2.7 x10^3uL (1.8-7.7); NEUT % 52 % (31-73); PLATELET COUNT 257 x10^3/uL (140-400); RED BLOOD COUNT 5.35 x10^6/uL (4.30-5.70); RED CELL DISTRIBUTION WIDTH 12.9 % (11.5-14.5); WHITE BLOOD COUNT 5.2 x10^3/uL (4.0-11.0)
[2020-11-25 15:48] LABS: CALCIUM 9.1 mg/dL (8.5-10.1); CREATININE 1.1 mg/dL (0.7-1.3); GFR 74.9; POTASSIUM 4.2 mmol/L (3.5-5.1)
[2020-11-25 16:04] LABS: ALBUMIN 4.2 g/dL (3.4-5.0); ALBUMIN/GLOBULIN RATIO 1.3 (1.0-1.7); DIRECT BILIRUBIN 0.1 mg/dL (0.0-0.2); MAGNESIUM 2.3 mg/dL (1.8-2.4); TOTAL BILIRUBIN 0.3 mg/dL (0.2-1.0); TOTAL PROTEIN 7.4 g/dL (6.4-8.2)
--- NOTE | 2020-11-25 16:17 | EKG ---
[address] [address] Test Date: 2020-11-25 Test Time: 15:04:07 Pat Name: ИРИНА OLIVAS Department: Room: Gender: M Bender Machine: CARISSA : 1980 Requested By: MICHAEL HARVEY Order Number: [id number] Reading MD: Measurements Intervals [place] Rate: 77 P: 72 [place]: 148 QRS: 73 QRSD: 82 T: 34 QT: 354 QTc: 402 Interpretive Statements SINUS RHYTHM NORMAL ECG RI6.02 No previous ECG available for comparison
--- NOTE | 2020-11-25 16:28 | RAD ---
EXAM: XR CHEST 2V 11/25/2020 3:29 PM CLINICAL INDICATION: Chest tightness COMPARISON: Chest radiograph 07/13/2020 TECHNIQUE: PA and lateral views of the chest FINDINGS: The heart and mediastinum are normal. Lungs are well-expanded and clear. No consolidatio n, pleural effusion, or pneumothorax. Pulmonary vascularity is normal. The thoracic skeleton is int act. IMPRESSION: Normal chest radiograph. Electronically signed by: Ana Luisa Gomez MD (11/25/2020 4:25 PM) [id number]
[2020-11-25] MEDS ORDERED: IOHEXOL 300 MG/ML 75 ML VIAL. IV ONE (16:30)
--- NOTE | 2020-11-25 16:45 | PHYS DOC ---
Past History Past Medical History: Anxiety, High Cholesterol, Other Additional Past Medical Histor: LYMES DISEASE X 7 YEARS, POSS HIATAL HERNIA (MICHAEL HARVEY APRN) Past Surgical History: Other Additional Past Surgical Histo: LEFT SHOULDER (MICHAEL HARVEY APRN) Smoking: Non-smoker Alcohol Use: Occasionally Drug Use: None (MICHAEL HARVEY APRN) Adult General Chief Complaint Chief Complaint: CHEST PAIN HPI HPI Patient is a 40-year-old male presents emergency department complaining of sudden onset of chest tightness during sexual intercourse approximately 1 hour prior to arrival. Patient reports he has been having off-and-on chest tightness that he rates at its worst a 5-4/10 on a 1-10 tightness scale over the past 2 da ys. Patient states that when it comes it makes him feel short of breath but it spontaneously relieves and his shortness of breath goes away. Patient denies any radiation of this chest tightness. Patient states that his chest tightness did resolve prior to arrival to the ER today. Patient denies any diaphoretic episodes. Patient denies any chest pain, nausea, vomiting, or diarrhea. Patient does report epigastric and upper abdominal pain with noting blood in his stool that is bright red. Patient states he has been worked up for blood in his stool in the past with 2 colonoscopies and was told they could not find any active bleeding. Patient states he has a history of low testosterone and takes testosterone, takes long-term Ceftin regimen for misdiagnosed Lyme's disease, Xanax for anxiety, omeprazole as needed for epigastric pains, and Xanax as needed. Patient denies any allergies to medications. (MICHAEL HARVEY APRN) Review of Systems Review of Systems 14 body systems of review of systems have been reviewed. See HPI for pertinent positives and negative responses, otherwise all other systems are negative, nonpertinent or noncontributory. (MICHAEL HARVEY APRN) Current Medications Current Medications Current Medications Medications (Trade) Dose Ordered Sig/Lenard Start Time Stop Time Status Last Admin Dose Admin Aspirin (Aspirin Chewable) 81 mg STK-MED ONCE 11/25/20 15:28 11/25/20 15:28 DC Iohexol (Omnipaque 300 Mg/ml) 75 ml 1X ONCE 11/25/20 16:30 11/25/20 16:31 UNV (MICHAEL HARVEY APRN) Allergies Allergies Allergies Coded Allergies Type Severity Reaction Last Updated Verified No Known Drug Allergies 02/09/14 No (MICHAEL HARVEY APRN) Physical Exam Physical Exam Constitutional: Well developed, well nourished, no acute distress, non-toxic appearance. 32-year-old male no apparent distress. HENT: Normocephalic, atraumatic, bilateral external ears normal, oropharynx moist, no oral exudates, nose normal. Eyes: PERRLA, EOMI, conjunctiva normal, no discharge. Neck: Normal range of motion, no tenderness, supple, no stridor. Cardiovascular:Heart rate regular rhythm, no murmur, heart sounds S1-S2. Lungs & Thorax: Bilateral breath sounds clear to auscultation no adventitious lung sounds appreciated. Pain to palpation on the left side of anterior thorax. Abdomen: Bowel sounds normal, soft, no tenderness, no masses, no pulsatile masses. Positive Levy's sign, no pain to palpation on other quadrants. Negative psoas sign. Skin: Warm, dry, no erythema, sporadic nonweeping nonraised erythematous rash with poorly demarcated borders to abdomen buttocks legs and hands, patient states this is from his Lyme's disease. Back: No tenderness, no CVA tenderness. Extremities: No tenderness, no cyanosis, no clubbing, ROM intact, no edema. Neurologic: Alert and oriented X 3, normal motor function, normal sensory function, no focal deficits noted. Psychologic: Affect normal, judgement normal, mood normal. GI/: Rectal exam performed to rule out occult blood, no blood noted on stool, normal rectal tone. No external hemorrhoids appreciated. No internal hemorrhoids palpated. (MICHAEL HARVEY APRN) Current Patient Data Vital Signs Vital Signs Date Time Temp Pulse Resp B/P (MAP) Pulse Ox O2 Delivery O2 Flow Rate FiO2 11/25/20 15:35 84 20 145/62 (89) 96 Room Air 11/25/20 15:00 98.3 Lab Results Laboratory Tests Test 11/25/20 15:10 White Blood Count 5.2 x10^3/uL (4.0-11.0) Red Blood Count 5.35 x10^6/uL (4.30-5.70) Hemoglobin 16.3 g/dL (13.0-17.5) Hematocrit 47.7 % (39.0-53.0) Mean Corpuscular Volume 89 fL (79-100) Mean Corpuscular Hemoglobin 30 pg (25-35) Mean Corpuscular Hemoglobin Concent 34 g/dL (31-37) Red Cell Distribution Width 12.9 % (11.5-14.5) Platelet Count 257 x10^3/uL (140-400) Neutrophils (%) (Auto) 52 % (31-73) Lymphocytes (%) (Auto) 31 % (24-48) Monocytes (%) (Auto) 8 % (0-9) Eosinophils (%) (Auto) 9 % (0-3) H Basophils (%) (Auto) 1 % (0-3) Neutrophils # (Auto) 2.7 x10^3uL (1.8-7.7) Lymphocytes # (Auto) 1.6 x10^3/uL (1.0-4.8) Monocytes # (Auto) 0.4 x10^3/uL (0.0-1.1) Eosinophils # (Auto) 0.5 x10^3/uL (0.0-0.7) Basophils # (Auto) 0.1 x10^3/uL (0.0-0.2) Prothrombin Time 9.4 SEC (9.4-11.4) Prothrombin Time INR 0.9 (0.9-1.1) Activated Partial Thromboplast Time 24 SEC (23-33) D-Dimer (Kelley) < 0.19 mg/L (0.00-0.50) Sodium Level 142 mmol/L (136-145) Potassium Level 4.2 mmol/L (3.5-5.1) Chloride Level 108 mmol/L (98-107) H Carbon Dioxide Level 26 mmol/L (21-32) Anion Gap 8 (6-14) Blood Urea Nitrogen 11 mg/dL (8-26) Creatinine 1.1 mg/dL (0.7-1.3) Estimated GFR (Cockcroft-Gault) 74.9 BUN/Creatinine Ratio 10 (6-20) Glucose Level 111 mg/dL (70-99) H Calcium Level 9.1 mg/dL (8.5-10.1) Magnesium Level 2.3 mg/dL (1.8-2.4) Total Bilirubin 0.3 mg/dL (0.2-1.0) Direct Bilirubin 0.1 mg/dL (0.0-0.2) Aspartate Amino Transferase (AST) 17 U/L (15-37) Alanine Aminotransferase (ALT) 50 U/L (16-63) Alkaline Phosphatase 86 U/L (46-116) Creatine Kinase 127 U/L (39-308) Creatine Kinase MB (Mass) 0.6 ng/mL (0.0-3.6) Creatine Kinase MB Relative Index 0.5 % (0-4) Troponin I Quantitative < 0.017 ng/mL (0-0.055) SU-Fxr-H-Type Natriuretic Peptide 26 pg/mL (0-124) Total Protein 7.4 g/dL (6.4-8.2) Albumin 4.2 g/dL (3.4-5.0) Albumin/Globulin Ratio 1.3 (1.0-1.7) Lipase 114 U/L (73-393) (MICHAEL HARVEY APRN) EKG EKG EKG performed at 1504 by house respiratory therapy staff shows a normal sinus rhythm without ectopy with a heart rate of 77 bpm, PA interval 0.148, QTc interval 0.354, no acute STEMI, no ACS, no acute ischemia appreciated, EKG inte rpreted by ED attending physician Dr. Samano. Serial EKG performed at 1647 by house respiratory therapy staff shows normal sinus rhythm without ectopy heart rate 74 bpm, PA interval 0.156, QTc interval 0.407, no acute STEMI, no ACS, no acute ischemia appreciated, EKG interpreted by ED attending physician Dr. Samano. (MICHAEL HARVEY APRN) Radiology/Procedures Radiology/Procedures [] (MICHAEL HARVEY APRN) Heart Score C/O Chest Pain: Yes HEART Score for Chest Pain: HEART Score for Chest Pain Response (Comments) Value History Slighlty/Non-Suspicious 0 ECG Normal 0 Age < 45 0 Risk Factors No Risk Factors 0 Troponin < Normal Limit 0 Total 0 Risk Factors: Risk Factors: DM, Current or recent (<one month) smoker, HTN, HLP, family history of CAD, obesity. Risk Scores: Risk Factors: DM, Current or recent (<one month) smoker, HTN, HLP, family history of CAD, obesity. (MICHAEL HARVEY APRN) Course & Med Decision Making Course & Med Decision Making Pertinent Labs and Imaging studies reviewed. (See chart for details) 40-year-old male, vital signs reviewed, presents emergency department concerning chest tightness during sexual intercourse prior to arrival. Patient denies family history of heart disease, however does have history of Lyme's disease that was misdiagnosed, is taken Ceftin long-term regimen. Also takes testosterone for low T. Patient did not have any chest tightness upon arrival to the ED, physical examination unremarkable for acute cardiac chest pain, the patient does take Xanax for anxiety, there may be an anxiety component to this. However we will start cardiopulmonary work-up in the ED to include D-dimer to rule out pulmonary emboli. Patient did complain of bleeding from the stool, a Hemoccult stool was ordered. Hemoccult stool positive, a CT abdomen pelvis with IV contrast was ordered related to patient's epigastric discomfort. Serial EKGs, lab work, CT abdomen pelvis, chest x-ray negative for acute cardiopulmonary or abdominal process. The patient's heart score equals 0. Patient's Hemoccult stool positive. No concerning findings on CT abdomen pelvis. Patient did reveal he has been worked up twice by GI with colonoscopies that did not reveal any reason for bleeding other than most likely internal hemorrhoid bleeding. Will have patient follow-up with primary care for reevaluation and consideration of additional GI specialty follow-up for additional colonoscopies. Upon reexamination of the patient, the patient remains symptom-free. Discussed findings with patient, diagnosis chest wall pain of unknown etiology. Patient is worried this may be arthritic changes related to his ongoing Lyme's disease process. Will start on Mobic 15 mg daily, will give 2 weeks worth of medication, discussed with patient this will give him time to follow-up with his primary care for ongoing pain management. Discussed with patient strict return to ER precautions for sudden onset chest pain or shortness of breath. Patient gave verbal understanding of discharge home instructions, follow-up with PCP, new medication use, RT ER, patient remained pain-free, symptom-free, remains nontoxic in appearance, is thankful states he is ready to go home, patient was discharged home without incident. (MICHAEL HARVEY APRN) Course & Med Decision Making I oversaw on the above date of service of this patient and discussed the care with the SALES AND SERVICE ENGINEER. I agree with the findings, plan of care, and disposition as documented. Electronically signed, Ginger Samano DO (GINGER SAMANO DO) Delfino Disclaimer Delfino Disclaimer This electronic medical record was generated, in whole or in part, using a voice recognition dictation system. (MICHAEL HARVEY APRN) Departure Departure: Impression: Primary Impression: Chest pain of unknown etiology Additional Impression: Blood in stool Disposition: HOME / SELF CARE / HOMELESS Condition: GOOD Referrals: MICHAEL PETE MD (PCP) Patient Instructions: Chest Wall Pain Additional Instructions: You are seen today in the emergency department for chest tightness and discomfort. A full cardiorespiratory work-up was performed in the emergency department, there was no concerning findings that would require hospitalization or intervention by a medical technologist blood bank or electric accounting machine operator. You also had blood in your stool, you have stated that this is not uncommon for you to have, you had stated you have had 2 colonoscopies to evaluate this in the past. A CAT scan of the abdomen pelvis was performed, there were no abnormal findings. Please follow-up with Dr. Pete this week regarding the occult blood in your stool, as he may consider follow-up with GI specialty again. I am starting you on Mobic for your chronic arthritis complaints, I am giving you 2 weeks worth please take as directed. Please follow-up with Dr. Pete for ongoing pain management. EMERGENCY DEPARTMENT GENERAL DISCHARGE INSTRUCTIONS Thank you for coming to [facility] (ED) today and trusting us with you care. We trust that you had a positivie experience in our Emergency Department. If you wish to speak to the department management, you may call the director at [phone]. YOUR FOLLOW UP INSTRUCTIONS ARE FOLLOWS: 1. Do you have a private Doctor? If you do not have a private doctor, please ask for a resource list of physicians or clinics that may be able to assist you with follow up care. 2. The Emergency Physician has interpreted your x-rays. The X-Ray specialist will also review them. If there is a change in the findings, you will be notified in 48 hours when at all possible. 3. A lab test or culture has been done, your results will be reviewed and you will be notified if you need a change in treatment. ADDITIONAL INSTRUCTIONS AND INFORMATION: 1. Your care today has been supervised by a physician who is specially trained in emergency care. Many problems require more than one evaluation for a complete diagnosis and treatment. We recommend that you schedule your follow up appointment as recommended to ensure complete treatment of you illness or injury. If you are unable to obtain follow up care and continue to have a problem, or if your condition worsens, we recommend that you return to the ED. 2. We are not able to safely determine your condition over the phone nor are we able to give sound medical advice over the phone. For these safety reasons, if you call for medical advice we will ask you to come to the ED for further evaluation. 3. If you have any questions regarding these discharge instructions please call the ED at [phone]. SAFETY INFORMATION: In the interest of safety, wellness, and injury prevention; we encourage you to wear your sealbelt, if you smoke; quite smoking, and we encourage family to use a protective helmet for bicycling and other sporting events that present an increased risk for head injury. IF YOUR SYMPTOMS WORSEN OR NEW SYMPTOMS DEVELOP, OR YOU HAVE CONCERNS ABOUT YOUR CONDITION; OR IF YOUR CONDITION WORSENS WHILE YOU ARE WAITING FOR YOUR FOLLOW UP APPOINTMENT; EITHER CONTACT YOUR PRIMARY CARE DOCTOR, THE PHYSICIAN WHOSE NAME AND NUMBER YOU WERE GIVEN, OR RETURN TO THE ED IMMEDIATELY. Scripts Meloxicam (MOBIC) 15 Mg Tablet 1 TAB PO DAILY for ARTHRITIC PAINS, #15 TAB 0 Refills Prov: MICHAEL HARVEY APRN 11/25/20 Problem Qualifiers MICHAEL HARVEY APRN November 25, 2020 16:45 GINGER SAMANO DO November 28, 2020 09:07
[2020-11-25 16:57] LABS: FECAL OB PT POSITIVE (NEG)
--- NOTE | 2020-11-25 17:27 | EKG ---
[address] [address] Test Date: 2020-11-25 Test Time: 16:47:01 Pat Name: ИРИНА OLIVAS Department: Room: Gender: M Historical Archeologist: CARISSA : 1980 Requested By: MICHAEL HARVEY Order Number: [id number] Reading MD: Measurements Intervals [place] Rate: 74 P: 59 IL: 156 QRS: 58 QRSD: 82 T: 28 QT: 362 QTc: 407 Interpretive Statements SINUS RHYTHM OTHERWISE NORMAL ECG RI6.02 No previous ECG available for comparison
--- NOTE | 2020-11-25 17:40 | RAD ---
Exam: CT of abdomen and pelvis with contrast INDICATION: Upper abdominal pain with rectal bleeding TECHNIQUE: Sequential axial images through the abdomen and pelvis obtained following the administrati on of 75 mL of Isovue-370 IV contrast. Sagittal and coronal reformatted images were reconstructed fro m the axial data and reviewed. Exposure: One or more of the following in the visualized dose reduction techniques were utilized for this examination: 1. Automated exposure control 2. Adjustment of the MA and/or KV according to patient size 3. Use of iterative of reconstructive technique Comparisons: 08/08/2019 FINDINGS: Heart size is normal. No pericardial effusion. Visualized lung bases are clear. No pleural effusion. Liver, spleen, pancreas, gallbladder and adrenals are unremarkable. No perinephric inflammation or hydronephrosis. No renal or ureteral calculi are identified. Bladder is distended and appears thin-walled. Prostate is not enlarged. Large and small bowel are unremarkable. Appendix is normal. No free intra-abdominal air fluid. No obs truction. Abdominal aorta has a normal course and caliber. Abdominal vasculature is patent. No enlarged intra-abdominal lymph nodes are identified. No suspicious osseous lesions or acute fractures. IMPRESSION: No acute process identified within the abdomen or pelvis. Electronically signed by: Inocencio Jones MD (11/25/2020 5:37 PM) [facility]
[2020-11-25] MEDS ORDERED: MELO15TA6 PO (18:02)
[2020-11-25 18:04] VITALS: BP 127/70
== END 2020-11-25 18:16 | disposition home or self-care (01) ==
LOC: ER 14:58
DX: R07.89 Other chest pain (principal); K92.1 Melena
CPT/HCPCS: 36415; 71046; 74177; 80053; 80076; 82274; 82553; 83690; 83735; 83880; 84484; 85025; 85379; 85610; 85730; 93005; 99285-25

== ENCOUNTER 2021-08-01 09:03 | Emergency (ER) | payer BC, OTHER ==
[~2021-08-01] VITALS: Ht 170.2 cm; Wt 96.3 kg
[~2021-08-01 09:03] MED LIST changes: -CITA10TA4 PO; +CITA10TA5 PO; +MELO15TA6 PO
--- NOTE | 2021-08-01 09:35 | PHYS DOC ---
Past History Past Medical History: Anxiety, High Cholesterol, Other Additional Past Medical Histor: LYMES DISEASE X 7 YEARS, POSS HIATAL HERNIA Past Surgical History: Other Additional Past Surgical Histo: LEFT SHOULDER Smoking: Non-smoker Alcohol Use: Occasionally Drug Use: None Adult General Chief Complaint Chief Complaint: MULTIPLE COMPLAINTS [facility] HPI Patient is a 41-year-old male presenting for the numerous complaints. Reports this is an acute on chronic issue. States he has had increased social stress at work recently and subsequently been having more issues with his neck reporting bilateral paracervical muscle pain with bilateral upper extremity paresthesias, specifically tingling. Also reports that for past 3 hours his mouth is been numb without any trauma, exposure, allergen or other mechanism of injury. States at times his chest hurts in addition to his back but reports he has had n umerous falls in the past. He also reports he has had a vague headache that originates at base of his skull for which she has not taken any medications for. He is here for evaluation because he could not get in to be seen by his primary care physician Review of Systems Review of Systems Fourteen body systems of review of systems have been reviewed. See HPI for pertinent positives and negative responses, other victor all other systems are negative, non-pertinent or non-contributory Allergies Allergies Allergies Coded Allergies Type Severity Reaction Last Updated Verified No Known Drug Allergies 02/09/14 No Physical Exam Physical Exam Constitutional: Well developed, well nourished, no acute distress, non-toxic appearance. HENT: Normocephalic, atraumatic, bilateral external ears normal, oropharynx moist, no oral exudates, nose normal. Eyes: PERRLA, EOMI, conjunctiva normal, no discharge. Neck: Normal range of motion, no midline tenderness or step-offs, no meningeal signs and/or nuchal rigidity, supple, no stridor. Cardiovascular: Heart rate regular, sinus rhythm, no murmurs rubs or gallops Lungs & Thorax: Bilateral breath sounds clear to auscultation Abdomen: Bowel sounds normal, soft, no tenderness, no masses, no pulsatile masses. Nonsurgical abdomen, no peritoneal signs Skin: Warm, dry, no erythema, no rash. Back: No tenderness, no CVA tenderness. Extremities: No tenderness, no cyanosis, no clubbing, ROM intact, no edema. 2+ radial pulses to bilateral upper extremities present Neurologic: Alert and oriented X 3, cranial nerves II through XII intact, medial radial and ulnar nerves of bilateral upper extremities intact, normal motor & sensory function, no focal deficits noted. Psychologic: Anxious affect and mood Current Patient Data Vital Signs Vital Signs Date Time Temp Pulse Resp B/P (MAP) Pulse Ox O2 Delivery O2 Flow Rate FiO2 08/01/21 09:32 98.2 86 16 135/89 (104) 98 Room Air Vital Signs Date Time Temp Pulse Resp B/P (MAP) Pulse Ox O2 Delivery O2 Flow Rate FiO2 08/01/21 09:32 98.2 86 16 135/89 (104) 98 Room Air Lab Results Current Medications Medications (Trade) Dose Ordered Sig/Lenard Route PRN Reason Start Time Stop Time Status Last Admin Dose Admin Ketorolac Tromethamine (Toradol 15mg Vial) 15 mg 1X ONCE IVP 08/01/21 11:45 08/01/21 11:46 DC 08/01/21 11:50 EKG EKG EKG ordered and interpreted by myself at 1022 hrs. is sinus rhythm at 77 bpm, unremarkable intervals, T wave inversion noted in lead III otherwise no acute ischemic findings, no STEMI Radiology/Procedures Radiology/Procedures EXAMINATION: CT STROKE HEAD W/O CLINICAL HISTORY: Reason: mouth numbness / Spl. Instructions: / History: . TECHNIQUE: Serial axial images without IV contrast were obtained from the vertex to the foramen magnum. CT Dose Reduction Employed: One or more of the following individualized dose reduction techniques were utilized for this examination: 1. Automated exposure control 2. Adjustment of the mA and/or kV according to patient size 3. Use of iterative reconstruction technique. COMPARISON: None FINDINGS: Acute Change: No evidence of an acute infarct or other acute parenchymal process. Hemorrhage: No evidence of acute intracranial hemorrhage. Mass Lesion/Mass Effect: No evidence of intracranial mass or extraaxial fluid collection. No significant mass effect. Parenchyma: Parenchyma within normal limits for age. Ventricles: Ventricles within normal limits for age. Paranasal Sinuses and Skull Base: Visualized paranasal sinuses clear. Visualized skull base and soft tissues unremarkable. IMPRESSION: No evidence of acute intracranial abnormality. Findings discussed with GINGER SAMANO DO at 08/01/2021 10:15 AM. Electronically signed by: Rick Flowers DO (08/01/2021 10:17 AM) [id number] /////////////////////////////////////// Single view of the chest. 08/01/2021 10:06 AM Indication: Reason: chest pain / Spl. Instructions: / History: Comparison: Chest radiograph the 2020 Findings: There is no focal consolidation. There is no pleural effusion or pneumothorax. The cardiomediastinal silhouette and pulmonary vasculature are within normal limits. No acute osseous abnormalities are seen. Impression: No evidence of acute cardiopulmonary process. Electronically signed by: Edwin Roca MD (08/01/2021 10:15 AM) [id number] Heart Score C/O Chest Pain: No Risk Factors: Risk Factors: DM, Current or recent (<one month) smoker, HTN, HLP, family history of CAD, obesity. Risk Scores: Risk Factors: DM, Current or recent (<one month) smoker, HTN, HLP, family h istory of CAD, obesity. Course & Med Decision Making Course & Med Decision Making ABCs unremarkable. I disclosed entirety of ER findings and discussed most likely diagnosis of anxiety versus other chronic musculoskeletal complaints. Other diagnoses were discussed with patient such as stroke, ACS, pneumonia and other potentially life and/or limb threatening diagnoses but all deemed less likely causes of patient's presentation. Plan of care discussed at length with need for close outpatient follow-up to review today's ER visit stressed. Strict return precautions were also discussed at length with good understanding verbalized by patient. Patient reports he has access to primary care physician for close outpatient follow-up and feels reassured after ER work-up today. Patient voiced understanding and agreement with the plan. Patient knows to come back for repeat evaluation if concerning signs or symptoms present prior to outpatient follow- up. Hemodynamically stable, ambulatory and well-appearing at time of disposition. Dragon Disclaimer Dragon Disclaimer This electronic medical record was generated, in whole or in part, using a voice recognition dictation system. Departure Departure: Impression: Primary Impression: Paresthesias Additional Impressions: Numbness of tongue Headache Chest pain Disposition: HOME / SELF CARE / HOMELESS Condition: STABLE Referrals: MICHAEL ROCA MD (PCP) DA PENDLETON MD Additional Instructions: You were seen for headache, paresthesias, numbness of tongue, and chest pain. Your workup did not show any acute abnormalities today, but does not indicate that you do not have underlying cardiovascular and/or neurologic disease. You do need to follow up with your primary doctor and potentially a dictating machine typist for further evaluation and treatment. Also disclosed you need to follow-up with a neurologist in outpatient setting for further evaluation, his contact is seen above. You should return to the ED if you develop worsening chest pain, shortness of breath, fever, abnormal sweating, leg swelling, or any other new or concerning symptoms. Problem Qualifiers GINGER SAMANO DO Aug 01, 2021 09:35
--- NOTE | 2021-08-01 10:18 | RAD ---
Single view of the chest. 08/01/2021 10:06 AM Indication: Reason: chest pain / Spl. Instructions: / History: Comparison: Chest radiograph the 2020 Findings: There is no focal consolidation. There is no pleural effusion or pneumothorax. The cardiome diastinal silhouette and pulmonary vasculature are within normal limits. No acute osseous abnormaliti es are seen. Impression: No evidence of acute cardiopulmonary process. Electronically signed by: Edwin Roca MD (08/01/2021 10:15 AM) [id number]
--- NOTE | 2021-08-01 10:19 | RAD ---
EXAMINATION: CT STROKE HEAD W/O CLINICAL HISTORY: Reason: mouth numbness / Spl. Instructions: / History: . TECHNIQUE: Serial axial images without IV contrast were obtained from the vertex to the foramen magnu m. CT Dose Reduction Employed: One or more of the following individualized dose reduction techniques wer e utilized for this examination: 1. Automated exposure control 2. Adjustment of the mA and/or kV ac cording to patient size 3. Use of iterative reconstruction technique. COMPARISON: None FINDINGS: Acute Change: No evidence of an acute infarct or other acute parenchymal process. Hemorrhage: No evidence of acute intracranial hemorrhage. Mass Lesion/Mass Effect: No evidence of intracranial mass or extraaxial fluid collection. No signific ant mass effect. Parenchyma: Parenchyma within normal limits for age. Ventricles: Ventricles within normal limits for age. Paranasal Sinuses and Skull Base: Visualized paranasal sinuses clear. Visualized skull base and soft tissues unremarkable. IMPRESSION: No evidence of acute intracranial abnormality. Findings discussed with GINGER SAMANO DO at 08/01/2021 10:15 AM. Electronically signed by: Rick Flowers DO (08/01/2021 10:17 AM) [id number]
[2021-08-01 10:54] LABS: BASO # 0.1 x10^3/uL (0.0-0.2); BASO % 1 % (0-3); EOS # 0.3 x10^3/uL (0.0-0.7); EOS % 7 % (0-3); HEMATOCRIT 46.6 % (39.0-53.0); HEMOGLOBIN 16.2 g/dL (13.0-17.5); LYMPH # 1.2 x10^3/uL (1.0-4.8); LYMPH % 24 % (24-48); MEAN CORPUSCULAR HEMOGLOBIN 31 pg (25-35); MEAN CORPUSCULAR HGB CONC 35 g/dL (31-37); MEAN CORPUSCULAR VOLUME 88 fL (79-100); MONO # 0.3 x10^3/uL (0.0-1.1); MONO % 7 % (0-9); NEUT # 3.1 x10^3uL (1.8-7.7); NEUT % 62 % (31-73); PLATELET COUNT 256 x10^3/uL (140-400); RED BLOOD COUNT 5.32 x10^6/uL (4.30-5.70); RED CELL DISTRIBUTION WIDTH 13.2 % (11.5-14.5); WHITE BLOOD COUNT 5.1 x10^3/uL (4.0-11.0)
[2021-08-01 11:05] LABS: CALCIUM 9.1 mg/dL (8.5-10.1); CREATININE 1.1 mg/dL (0.7-1.3); GFR 74.5; POTASSIUM 4.7 mmol/L (3.5-5.1)
[2021-08-01 11:26] VITALS: BP 131/87
[2021-08-01] MEDS ORDERED: KETOROLAC 15 MG/ML VIAL. IVP ONE (11:45)
--- NOTE | 2021-08-01 19:44 | EKG ---
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
== END 2021-08-01 11:58 | disposition home or self-care (01) ==
LOC: ER 09:03
DX: R20.2 Paresthesia of skin (principal); R51.9 Headache, unspecified; R07.9 Chest pain, unspecified; F41.9 Anxiety disorder, unspecified; E78.00 Pure hypercholesterolemia, unspecified
CPT/HCPCS: 36415; 70450; 71045; 80048; 84484; 85025; 93005; 96374; 99285; J1885

== ENCOUNTER 2021-09-25 20:56 | Emergency (ER) | payer OTHER ==
[~2021-09-25] VITALS: Ht 170.2 cm; Wt 94.0 kg
--- NOTE | 2021-09-25 21:11 | PHYS DOC ---
Past History Past Medical History: Anxiety, High Cholesterol, Other Additional Past Medical Histor: LYMES DISEASE X 7 YEARS, POSS HIATAL HERNIA Past Surgical History: Other Additional Past Surgical Histo: LEFT SHOULDER Smoking: Non-smoker Alcohol Use: Occasionally Drug Use: None General Adult EDM: Chief Complaint: CHEST PAIN HPI: HPI: "I was moving a large air conditioner.. to day.. " " It was too heavy for me.. and what is worse.. I carried into the shop.. and they said they were closed.. so I had to move it again back home.. since then I ve been having chest pain.." Patient is a 41 year old male who presents with above hx. and complaints of chest pain after moving a large air conditioner unit. Patient localizes pain to the center chest. Is reproducible on palpation of sternum and xiphoid process. Patient has had previous injury to xiphoid process. Patient denies any past history of coronary artery disease but states his heart was affected because of Lyme disease episode 7 years ago. Patient has followed periodically with Dr. Mullen infectious disease at [facility]. Patient does not smoke. There is a strong family history both with grandfathers both sides of his family with MIs one at age 34 and 154. Mother has hypertension . Patient states that after he was lifting air conditioner he felt very worn out for the rest of the day. Patient has not gotten flu vaccination patient has not gotten COVID vaccination. Patient has significant past medical history of Lyme's disease which required prolonged episodes of antibiotics. Patient had no history of coagulopathy. He does not smoke. No history of fever or chills. No history recent travel. No history of severe ill contacts. Patient has history of rotator cuff injury with repair on the left. He has had a colonoscopy. He does have a history of hypothyroidism and hypogonadism. He is on supplemental testosterone. Has had a history of GERD and some irritable bowel disorders. Does have a history of anxiety. Review of Systems: Review of Systems: Constitutional: Denies fever or chills Eyes: Denies change in visual acuity HENT: Denies nasal congestion or sore throat Respiratory: Denies cough or shortness of breath Cardiovascular: Complains of chest wall pain GI: Denies abdominal pain, nausea, vomiting, bloody stools or diarrhea : Denies dysuria Musculoskeletal: Denies back pain or joint pain Integument: Denies rash Neurologic: Denies headache, focal weakness or sensory changes Endocrine: Denies polyuria or polydipsia Lymphatic: Denies swollen glands Psychiatric: Denies depression or anxiety Family History: Family History: Early onset of cardiac disorders starting at age 34 and family members Current Medications: Current Meds: See nursing for home meds Allergies: Allergies: Allergies Coded Allergies Type Severity Reaction Last Updated Verified bee venom protein (honey bee) Allergy Unknown 09/25/21 Yes Physical Exam: PE: Constitutional: Well developed, well nourished, mild to moderate distress, non- toxic appearance. [] HENT: Normocephalic, atraumatic, bilateral external ears normal, oropharynx moist, no oral exudates, nose normal. [] Eyes: PERRLA, EOMI, conjunctiva normal, no discharge. [] Neck: Normal range of motion, no tenderness, supple, no stridor. [] Cardiovascular:Heart rate regular rhythm, no murmur [] Lungs & Thorax: Bilateral breath sounds equal apex on auscultation []. The patient does have sternum tenderness and marked tenderness of xiphoid process Abdomen: Bowel sounds normal, soft, no tenderness, no masses, no pulsatile masses. [] Skin: Warm, dry, no erythema, nonspecific patchy rash on abdomen Back: No tenderness, no CVA tenderness. [] Extremities: No tenderness, no cyanosis, no clubbing, ROM intact, no edema. Surgery scar left shoulder Neurologic: Alert and oriented X 3, normal motor function, normal sensory function, no focal deficits noted. [] Psychologic: Affect anxious, judgement normal, mood normal. [] EKG: EKG: My interpretation EKG shows a sinus tachycardia 101 bpm. No acute morphology. Time of EKG is 2106 hrs. [] My interpretation second EKG shows a sinus rhythm at 72 bpm. No acute morphology. No significant interval change between prior EKG other than heart rate is slower at this time. Patient time of this EKG is 2352 hrs. Radiology/Procedures: Radiology/Procedures: [address] [address] IMAGING REPORT Signed PATIENT: YUNG HERNADEZ ACCOUNT: [id number] : 04/06/1949 LOCATION: ER AGE: 72 SEX: F EXAM STATUS: PRE ER ORD. PHYSICIAN: DONNA LOUIE MD REASON: Chest pain PROCEDURE: PORTABLE CHEST 1V Exam: Chest one view INDICATION: Chest pain TECHNIQUE: Frontal view of the chest Comparisons: 01/02/2021 FINDINGS: The cardiomediastinal silhouette and pulmonary vessels are within normal limits. The lung and pleural spaces are clear. IMPRESSION: No acute cardiopulmonary process. Electronically signed by: Inocencio Carter MD (09/25/2021 10:44 PM) [facility] DICTATED AND SIGNED BY: INOCENCIO CARTER MD DATE: 09/25/217 CC: DONNA LOUIE MD; MICHAEL PETE MD ~ [][address] [address] IMAGING REPORT Signed PATIENT: ИРИНА OLIVAS ACCOUNT: [id number] : 1980 LOCATION: ER AGE: 41 SEX: M EXAM STATUS: REG ER ORD. PHYSICIAN: DONNA LOUIE MD REASON: cp PROCEDURE: PORTABLE CHEST 1V Exam Date: 09/25/2021 10:19 PM XR CHEST 1V Indication: Reason: cp / Spl. Instructions: / History: . Comparison: December 30, 2021 FINDINGS/ IMPRESSION: There is mild elevation of the right hemidiaphragm. The cardiac silhouette and pulmonary vasculature are within normal limits. There is no focal consolidation, pleural effusion or pneumothorax. The visualized osseous structures are intact. Electronically signed by: Joseph Carrera MD (09/25/2021 10:34 PM) [facility] DICTATED AND SIGNED BY: JOSEPH CARRERA MD DATE: 09/25/212232 CC: DONNA LOUIE MD; MICHAEL PETE MD ~ IMAGING REPORT Signed PATIENT: ИРИНА OLIVAS ACCOUNT: [id number] : 1980 LOCATION: ER AGE: 41 SEX: M EXAM STATUS: REG ER ORD. PHYSICIAN: DONNA LOUIE MD REASON: cp PROCEDURE: PORTABLE CHEST 1V Exam Date: 09/25/2021 10:19 PM XR CHEST 1V Indication: Reason: cp / Spl. Instructions: / History: . Comparison: December 30, 2021 FINDINGS/ IMPRESSION: There is mild elevation of the right hemidiaphragm. The cardiac silhouette and pulmonary vasculature are within normal limits. There is no focal consolidation, pleural effusion or pneumothorax. The visualized osseous structures are intact. Electronically signed by: Joseph Carrera MD (09/25/2021 10:34 PM) [facility] DICTATED AND SIGNED BY: JOSEPH CARRERA MD DATE: 09/25/212232 CC: DONNA LOUIE MD; MICHAEL PETE MD ~ Heart Score: C/O Chest Pain: Yes HEART Score for Chest Pain: HEART Score for Chest Pain Response (Comments) Value History Slighlty/Non-Suspicious 0 ECG Nonspecific Repolarizatio 1 Age < 45 0 Risk Factors 1 or 2 Risk Factors 1 Troponin < Normal Limit 0 Total 2 Risk Factors: Risk Factors: DM, Current or recent (<one month) smoker, HTN, HLP, family history of CAD, obesity. Risk Scores: Score 0 - 3: 2.5% MACE over next 6 weeks - Discharge Home Score 4 - 6: 20.3% MACE over next 6 weeks - Admit for Clinical Observation Score 7 - 10: 72.7% MACE over next 6 weeks - Early Invasive Strategies Course & Med Decision Making: Course & Med Decision Making Pertinent Labs and Imaging studies reviewed. (See chart for details) Patient to use ice packs as needed. Take Tylenol and ibuprofen for pain. Avoid having lifting or stress on sternal area suspect he has cracked the cartilage or soft has muscle strain at that site. Patient follow-up pending Lyme titers. Advised patient that his CRP was 0.5 which makes an exacerbation currently very unlikely. Patient consider outpatient stress testing. Recommend patient follow-up with Dr. Pete and have them review ED work-up. Impression: 1. Chest Wall Pain 2. Hx. of Lyme Dz- Tx [] Delfino Disclaimer: Delfino Disclaimer: This electronic medical record was generated, in whole or in part, using a voice recognition dictation system. Departure Departure: Referrals: MICHAEL PETE MD (PCP) Delfnio Disclaimer This chart was dictated in whole or in part using Voice Recognition software in a busy, high-work load, and often noisy Emergency Department environment. It may contain unintended and wholly unrecognized errors or omissions. Dragon Disclaimer This chart was dictated in whole or in part using Voice Recognition software in a busy, high-work load, and often noisy Emergency Department environment. It may contain unintended and wholly unrecognized errors or omissions. DONNA LOUIE MD Sep 25, 2021 21:11
[2021-09-25] MEDS ORDERED: IV RINGERS SOLUTION,LACTATED 1,000 ML IV SCH (22:15)
--- NOTE | 2021-09-25 22:23 | EKG ---
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
--- NOTE | 2021-09-25 22:36 | RAD ---
Exam Date: 09/25/2021 10:19 PM XR CHEST 1V Indication: Reason: cp / Spl. Instructions: / History: . Comparison: December 30, 2021 FINDINGS/ IMPRESSION: There is mild elevation of the right hemidiaphragm. The cardiac silhouette and pulmonary vasculature are within normal limits. There is no focal consolidation, pleural effusion or pneumothorax. The visualized osseous structures are intact. Electronically signed by: Gallito Carrera MD (09/25/2021 10:34 PM) [facility]
[2021-09-25 22:40] LABS: BASO # 0.1 x10^3/uL (0.0-0.2); BASO % 1 % (0-3); EOS # 0.4 x10^3/uL (0.0-0.7); EOS % 7 % (0-3); HEMATOCRIT 46.4 % (39.0-53.0); HEMOGLOBIN 16.2 g/dL (13.0-17.5); LYMPH # 2.2 x10^3/uL (1.0-4.8); LYMPH % 40 % (24-48); MEAN CORPUSCULAR HEMOGLOBIN 31 pg (25-35); MEAN CORPUSCULAR HGB CONC 35 g/dL (31-37); MEAN CORPUSCULAR VOLUME 88 fL (79-100); MONO # 0.5 x10^3/uL (0.0-1.1); MONO % 10 % (0-9); NEUT # 2.3 x10^3uL (1.8-7.7); NEUT % 42 % (31-73); PLATELET COUNT 246 x10^3/uL (140-400); RED BLOOD COUNT 5.28 x10^6/uL (4.30-5.70); RED CELL DISTRIBUTION WIDTH 13.2 % (11.5-14.5); WHITE BLOOD COUNT 5.5 x10^3/uL (4.0-11.0)
[2021-09-25 22:43] LABS: ANION GAP 10 (6-14); BLOOD UREA NITROGEN 13 mg/dL (8-26); CALCIUM 8.8 mg/dL (8.5-10.1); CARBON DIOXIDE 26 mmol/L (21-32); CHLORIDE 103 mmol/L (98-107); GFR 83.2; GLUCOSE 114 mg/dL (70-99); POTASSIUM 3.4 mmol/L (3.5-5.1); SODIUM 139 mmol/L (136-145)
[2021-09-25 22:56] LABS: ALBUMIN 4.1 g/dL (3.4-5.0); ALK PHOS 85 U/L (46-116); ALT (SGPT) 58 U/L (16-63); AST (SGOT) 21 U/L (15-37); LIPASE 70 U/L (73-393); MAGNESIUM 2.3 mg/dL (1.8-2.4); TOTAL BILIRUBIN 0.3 mg/dL (0.2-1.0); TOTAL PROTEIN 6.9 g/dL (6.4-8.2)
[2021-09-25 23:19] LABS: DIRECT BILIRUBIN < 0.1 mg/dL (0.0-0.2)
[2021-09-26 02:37] LABS: BARBITURATES NEG (NEG); BENZODIAZEPINES POS (NEG); CANNABINOIDS NEG (NEG); COCAINE NEG (NEG); METHADONE NEG (NEG); OPIATES NEG (NEG); PHENCYCLIDINE NEG (NEG)
[2021-09-26 02:45] LABS: AMPHETAMINE/METHAMPHETAMINE NEG (NEG); BACTERIA,URINE 0 /HPF (0-FEW); CLARITY,URINE CLEAR; COLOR,URINE YELLOW; GLUCOSE,URINE NEG (NEG); NITRITE,URINE NEG (NEG); RBC,URINE 0 /HPF (0-2); UROBILINOGEN,URINE 0.2 mg/dL (0.2 mg/dL); WBC,URINE 0 /HPF (0-4)
[2021-09-26 03:05] VITALS: BP 124/80
[2021-09-26] MEDS ORDERED: KETOROLAC 30 MG/ML VIAL. ONE (03:20)
[2021-09-26] MEDS ORDERED: KETOROLAC 30 MG/ML VIAL. IVP ONE (03:30)
--- NOTE | 2021-09-26 06:45 | EKG ---
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
== END 2021-09-26 03:28 | disposition home or self-care (01) ==
LOC: ER 20:56
DX: R07.2 Precordial pain (principal); F41.9 Anxiety disorder, unspecified; E78.00 Pure hypercholesterolemia, unspecified; E03.9 Hypothyroidism, unspecified; K21.9 Gastro-esophageal reflux disease without esophagitis; Z20.822 Contact with and (suspected) exposure to COVID-19; Z91.030 Bee allergy status
CPT/HCPCS: 36415; 71045; 80048; 80076; 80307; 81001; 82550; 83690; 83735; 83880; 84443; 84484; 85025; 85379; 85610; 86140; 93005; 96361; 96374; 99285; J1885; J7120; U0001